=== PATIENT | female | born 1960 | race Caucasian/White ===

== ENCOUNTER → 2017-09-06 13:29 | Outpatient (CLI) | payer SELFPAY ==
--- NOTE | 2017-09-06 | DI.RAD.S_ITS ---
PROCEDURE: XR CHEST 2V INDICATIONS: POSITIVE TB SCREENING,ASYMPTOMATIC TECHNIQUE: 2 views of the chest were acquired. COMPARISON: [facility], , CHEST 1 VIEW, 11/02/2007, 15:27. FINDINGS: Surgical changes and devices: None. Lungs and pleura: No pleural effusions or pneumothorax. Lungs are clear. Mediastinum: Mediastinal contours are normal. Heart size is normal. Bones and chest wall: No suspicious bony abnormalities. Soft tissues appear unremarkable. IMPRESSION: Normal chest. No radiographic evidence of tuberculosis Dictated by: West Segovia M.D. on 09/06/2017 at 14:20 Approved by: West Segovia M.D. on 09/06/2017 at 14:20
== END ==
PROVIDERS: PCP Physician Assistant; Visit Provider Family Medicine
DX: R76.11 Nonspecific reaction to tuberculin skin test without active tuberculosis (principal)
CPT/HCPCS: 71046

== ENCOUNTER → 2018-03-07 11:35 | Outpatient (CLI) | payer SELFPAY | DX: Z23 Encounter for immunization (principal) | CPT/HCPCS: 90471; 90686 ==

== ENCOUNTER → 2018-12-16 11:21 | Outpatient (CLI) | payer OTHER, SELFPAY ==
[2018-12-16 12:29] LABS: Blood Urea Nitrogen 15 mg/dL (7-17); Calcium 9.5 mg/dL (8.4-10.2); Carbon Dioxide 29 mmol/L (22-32); Chloride 98 mmol/L (98-107); Cholesterol 177 mg/dL (140-199); Estimated Glomerular Filt Rate > 60.0 mL/min (>60); Glucose 143 mg/dL (70-100); HDL Cholesterol 50 mg/dL (40-60); HEMOLYSIS < 15 (0-50); LDL Cholesterol Calculated 113 mg/dL (<100); Potassium 3.9 mmol/L (3.4-5.1); Sodium 138 mmol/L (137-145); Triglycerides 68 mg/dL (35-150)
== END ==
PROVIDERS: PCP Internal Medicine; Visit Provider Internal Medicine
DX: Z13.220 Encounter for screening for lipoid disorders (principal); I10 Essential (primary) hypertension
CPT/HCPCS: 36415; 80048; 80061

== ENCOUNTER → 2019-04-07 14:19 | Outpatient (CLI) | payer OTHER, SELFPAY | PROVIDERS: PCP Internal Medicine | DX: Z23 Encounter for immunization (principal) | CPT/HCPCS: 90471; 90686 ==

== ENCOUNTER → 2019-05-28 13:04 | Outpatient (CLI) | payer OTHER, SELFPAY ==
--- NOTE | 2019-05-28 13:07 | DI.RAD.S_ITS ---
PROCEDURE: XR SHOULDER RT MIN 2V INDICATIONS: Ongoing pain status post injury 09/30/2018 TECHNIQUE: 4 views of the shoulder were acquired. COMPARISON: None. FINDINGS: Bones: No fractures or dislocations. No suspicious bony lesions. Visualized ribs appear intact. Mild downsloping of the lateral acromion is present. No significant degenerative changes of the right shoulder joint are appreciated. Soft tissues: No suspicious soft tissue calcifications. IMPRESSION: No acute fractures of the right shoulder. Dictated by: Sourav Moffett M.D. on 05/28/2019 at 12:52 Approved by: Sourav Moffett M.D. on 05/28/2019 at 12:53
--- NOTE | 2019-05-28 13:07 | DI.RAD.S_ITS ---
PROCEDURE: XR THORACIC SPINE 3V INDICATIONS: Ongoing pain status post injury 09/30/2018 TECHNIQUE: 3 views of the thoracic spine were acquired. COMPARISON: [facility], , XR CHEST 2V, 09/06/2017, 13:40. FINDINGS: Bones: On the lateral views, the cervicothoracic junction is adequately visualized and the alignment through this region is within normal limits. The vertebral body heights are within normal limits throughout the thoracic spine without evidence to suggest acute compression fracture. The bone mineralization is within normal limits. Mild degenerative changes of the thoracic spine are evident. Soft tissues: The imaged overlying soft tissues of the chest are within normal limits. IMPRESSION: 1. No acute compression fractures of the thoracic spine. 2. Mild degenerative changes of the thoracic spine. Dictated by: Sourav Moffett M.D. on 05/28/2019 at 12:53 Approved by: Sourav Moffett M.D. on 05/28/2019 at 12:54
== END ==
PROVIDERS: PCP Internal Medicine; Referring Provider Physical Medicine & Rehabilitation; Visit Provider Physical Medicine & Rehabilitation
DX: M54.6 Pain in thoracic spine (principal); M54.2 Cervicalgia; M47.814 Spondylosis without myelopathy or radiculopathy, thoracic region; M25.511 Pain in right shoulder; T14.90XD Injury, unspecified, subsequent encounter; X58.XXXD Exposure to other specified factors, subsequent encounter; M99.02 Segmental and somatic dysfunction of thoracic region
CPT/HCPCS: 72072; 73030

== ENCOUNTER → 2020-04-26 15:56 | Outpatient (CLI) | payer OTHER, SELFPAY ==
[2020-04-26] MEDS: COVID-19 VACC(MODERNA-1)/PF 100 MCG/0.5 ML VIAL IM (16:09)
== END ==
PROVIDERS: PCP Internal Medicine; Visit Provider Internal Medicine
DX: Z23 Encounter for immunization (principal)
CPT/HCPCS: 0011A; 91301

== ENCOUNTER → 2020-05-23 15:14 | Outpatient (CLI) | payer OTHER, SELFPAY ==
[2020-05-23] MEDS: COVID-19 VACC #2, MRNA(MOD) 100 MCG/0.5 ML VIAL IM (15:25)
== END ==
PROVIDERS: PCP Internal Medicine; Visit Provider Internal Medicine
DX: Z23 Encounter for immunization (principal)
CPT/HCPCS: 0012A; 91301

== ENCOUNTER → 2024-01-27 12:02 | Outpatient (CLI) | payer BC, SELFPAY ==
--- NOTE | 2024-01-27 12:07 | DI.US.S_ITS ---
PROCEDURE: US ABDOMEN LIMITED INDICATIONS: RUQ MASS TECHNIQUE: Real-time focused scanning was performed of the abdomen, with image documentation. COMPARISON: None. FINDINGS: The liver demonstrates enlarged size. The liver demonstrates generalized moderately increased echogenicity. This decreases ultrasound sensitivity for detection of hepatic masses. The portal vein and IVC are demonstrated to be patent. The gallbladder is contracted at the time of this study, which limits its evaluation. No findings of gallstones or sludge are seen. The gallbladder wall is not thickened, measuring 3 mm or less. No specific pericholecystic fluid is seen. The sonographic Perez sign is negative. There is no biliary dilatation, the common bile duct measures 4 mm. No significant pancreatic abnormality is seen on these images. The visualized right kidney is unremarkable, without hydronephrosis. This study is limited by body habitus. Scanning is performed at the area of clinical concern within the right upper quadrant. There is an area of mildly echogenic fat seen, measuring 2.1 x 1.3 x 2.9 cm. No abnormal vascularity. IMPRESSION: Likely lipoma seen at the area of clinical concern. No suspicious masses are seen. Enlarged, fatty infiltrated liver. Dictated by: Errol Emerson M.D. on 01/27/2024 at 16:12 Approved by: Errol Emerson M.D. on 01/27/2024 at 16:14
== END ==
PROVIDERS: PCP Family Medicine; Referring Provider Family Medicine; Visit Provider Family Medicine
DX: K76.0 Fatty (change of) liver, not elsewhere classified (principal); R19.01 Right upper quadrant abdominal swelling, mass and lump
CPT/HCPCS: 76705